=== PATIENT | female | born 1980 | race Caucasian/White ===

== ENCOUNTER 2022-01-10 10:37 | Emergency (ER) | payer BC | END 2022-01-10 12:15 | disposition home or self-care (01) | LOC: LL.ED 10:37 | DX: S52.601A Unspecified fracture of lower end of right ulna, initial encounter for closed fracture (principal); W01.0XXA Fall on same level from slipping, tripping and stumbling without subsequent striking against object, initial encounter; Y93.64 Activity, baseball | CPT/HCPCS: 29125; 73090-RT; 73110-RT; 99283; 99283-25 ==